=== PATIENT | male | born 1950 | race Two or more races ===

== ENCOUNTER 2016-08-19 10:11 | Emergency (ER) | payer OTHER ==
--- NOTE | 2016-08-19 10:16 | UCPHY ---
H & P Patient Type: New HPI/ROS: CHIEF COMPLAINT: Cough, congestion. HISTORY OF PRESENT ILLNESS: The patient is a 66-year-old male who presents with productive cough and congestion for 3 weeks. Symptoms initially were associated with a fever which has subsided. He describes the sputum as greenish-yellow. The cough is worse at night. He denies fever, chills, chest pain, shortness of breath, palpitations, vomiting, diarrhea, urinary complaints, headache, lightheadedness, peripheral edema. He has been treating the symptoms with NyQuil and DayQuil which have helped. REVIEW OF SYSTEMS: Aside from elements discussed in the HPI, a comprehensive 10-point review of systems was reviewed and is negative. PAST MEDICAL HISTORY: Hypertension, pneumonia. 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 VITAL SIGNS: Reviewed by me GENERAL: Well-developed, well-nourished, resting comfortably in no respiratory distress. HEENT: Atraumatic. Eyes: No icterus, no injection. Mouth: moist mucous membranes. No erythema or lesions. Neck: supple with no adenopathy. LUNGS: Clear to auscultation bilaterally, no wheezes, rhonchi or rales. CARDIAC: Regular rate and rhythm, no rubs, murmurs or gallops. ABDOMEN: Soft, nontender, nondistended, bowel sounds normal. BACK: No CVA tenderness. EXTREMITIES: No trauma. No edema. Range of motion is normal throughout. NEURO: Alert and oriented, grossly nonfocal. SKIN: Warm and dry, no rash. PSYCHIATRIC: Normal mentation, no agitation. Portions of this note were transcribed by a medical director/head team physician. I personally performed a history, physical exam, medical decision making, and confirmed accuracy of information the transcribed note. Constitutional: Initial Vital Signs Temperature (C) 36.6 C 08/19/16 10:28 Heart Rate 96 08/19/16 10:28 Respiratory Rate 18 08/19/16 10:28 Blood Pressure 139/92 H 08/19/16 10:28 O2 Sat (%) 90 L 08/19/16 10:28 O2 Delivery Mode Room Air Allergies/Adverse Reactions: influenza virus vaccine, specific Allergy (Verified 08/19/16 10:25) Home Medications: Medication Instructions Recorded ASA/Calcium Carb/Mag/Al Hydrox 08/19/16 AZITHROMYCIN [Z-PACK] 250 - 500 mg PO DAILY #6 tab 08/19/16 Albuterol [Proventil Inhaler HFA 1 - 2 puffs IH Q4H #1 mdi 08/19/16 (*)] Amlodipine Besylate 08/19/16 Benzonatate [Tessalon Pearles (RX)] 100 mg PO TID PRN #20 cap 08/19/16 HYDROcodone/HOMATROPINE HYCODA 1 tsp PO Q4-6PRN PRN #120 ml 08/19/16 [Hycodan Syrup (*)] Hydrochlorothiazide 08/19/16 Latanoprost 08/19/16 Losartan Potassium 08/19/16 Omeprazole 08/19/16 Simvastatin 08/19/16 predniSONE 40 mg PO DAILY #6 tab 08/19/16 Medical Decision Making - Diagnostics Imaging: CXR obtained and reviewed by myself. No acute pneumonia. ED Course/Re-evaluation: Albuterol neb given. Slight dimished cough, improved sense of congestion. Will dc with azithromycin, albuterol and prednisone. Differential Diagnosis: Differential diagnosis for the patient's shortness of breath was considered including but not limited to pulmonary infectious processes, COPD exacerbation, pulmonary emboli, pulmonary edema, congestive heart failure, and cardiac causes. Departure - Departure Disposition: Home, Routine, Self-Care Clinical Impression: Bronchitis Condition: Good Instructions: Acute Bronchitis (ED) Additional Instructions: Take Prednisone as prescribed. Use the inhaler as instructed. 2-4 puffs 4 times a day. Consider using the inhaler shortly before bed to help control your cough. Take Azithromycin as prescribed. Try Tessalon Pearls for the cough. You may fill the Hycodan cough syrup prescription if your symptoms are not being controlled with the above measures. Follow up with your primary care provider in the next 2-3 days if symptoms are not improving. If you need a primary care provider you have been given the telephone number of Dr. Dangelo, outpatient medicine. Return to Urgent Care or the emergency department if you experience serious worsening of condition. Referrals: Clayton Dangelo DO [Doctor of Osteopathy] - As per Instructions Prescriptions: HYDROcodone/HOMATROPINE HYCODA [Hycodan Syrup (*)] 1 tsp PO Q4-6PRN PRN #120 ml PRN Reason: cough Albuterol [Proventil Inhaler HFA (*)] 1 - 2 puffs IH Q4H #1 mdi Benzonatate [Tessalon Pearles (RX)] 100 mg PO TID PRN #20 cap PRN Reason: cough AZITHROMYCIN [Z-PACK] 250 - 500 mg PO DAILY #6 tab predniSONE 40 mg PO DAILY #6 tab - PQRS PQRS Measurement: 134: Depression screening and followup, PRIME MD-PHQ2 (12 years and older) Over the last 2 weeks, how often have you been bothered by any of the following problems? 1. Feeling down, depressed, or hopeless? 2. Little interest or pleasure in doing things? Patient answered no to both 1 and 2 130: Documentation of medications. Reviewed all patient medications, doses, route and frequency. 226: Do you smoke? No. 47: 65 and older: Advanced care planning. Patient designates surrogate decision maker as significant other. 51: 18 years old and older with diagnosis of COPD, spirometry performance. Patient has no history of COPD. 52: 18 years old and older with COPD and symptoms of COPD or FEV1<60% predicted prescribed a B Agonist. Patient has no history of COPD Report Scribed for: Jaqueline Raman Report Scribed by: Wu Choudhary Date of Report: 08/19/16 Time of Report: 10:24
[2016-08-19 10:30] VITALS: BP 139/92; PULSE 96; RESP 18; TEMP 98; O2SAT 90
== END 2016-08-19 10:50 | disposition home or self-care (01) ==
LOC: CED 10:11
DX: J40 Bronchitis, not specified as acute or chronic (principal); I10 Essential (primary) hypertension
CPT/HCPCS: G0463-PO